=== PATIENT | female | born 1985 ===

== ENCOUNTER 2024-07-11 09:51 | Emergency (ER) | payer MEDICAID, SELFPAY ==
--- NOTE | ~2024-07-11 | US_ITS ---
CLINICAL HISTORY: Early US female pelvis LMP:Unknown, positive test, beta HCG level 6920. Technique: Ultrasound examination of the pelvis was performed with transabdominal and transvaginal technique for better visualization of the ovaries. Comparison: None Findings: No intrauterine gestation. Retroverted uterus measuring 7.8 x 4.9 x 5.1 cm without masses. Normal endometrial thickness of 0.6cm. The right ovary is normal in size, measuring 3.1 x 1.5 x 2.2cm, volume of 5.4mL. There is normal echogenicity and vascularity. There is a lesion measuring 1.8 x 1.5 x 1.4 cm which is centrally anechoic with hypoechoic rim and peripheral vascularity. It is not definitively demonstrated to be separate from the right ovary. Right paraovarian simple cyst measuring 0.8 x 0.5 x 0.8 cm. The left ovary is normal in size, measuring 4.7 x 2.3 x 3.0cm, volume of 17.0mL. There is normal echogenicity and vascularity. There is a heterogeneous avascular lesion with peripheral hypervascularity measuring 2.7 x 1.8 x 1.8 cm. No free fluid. Impression: Right tubal ectopic is favored. The 1.8 cm lesion is not definitively demonstrated to be separate from the right ovary and an ovarian ectopic may also be considered, however is rare. No rupture. 2.7 cm complex cyst in the left ovary is favored to be a corpus luteum. 8-12 week follow up pelvic ultrasound is recommended. This document has been electronically signed by: Dina Tolentino MD on 07/11/2024 21:16:49
[2024-07-11 12:20] VITALS: BP 130/66; PULSE 79; RESP 16; TEMP 36.4; O2SAT 100; BMI 22.3
--- NOTE | 2024-07-11 12:23 | ED_ITS ---
HPI - General Adult General Chief complaint: General Medical Stated complaint: Lower back pain Time Seen by Provider: 07/11/24 19:19 History of Present Illness ED Provider: Dr. Brunson HPI narrative: 39 y/o F patient; PMH (gave approx 10 months ago); presents from home reporting 12 days of bright red vaginal bleeding, suprapubic abdominal pain, and rectal pressure. The patient states she has been taking her control twice a day as prescribed. She otherwise denies: nausea/vomiting, fever or chills, SOB, cough/congestion, chest pain, syncope. Related Data Allergies Allergy/AdvReac Type Severity Reaction Status Date / Time No Known Allergies Allergy Verified 07/11/24 12:25 Review of Systems 2 Review of Systems: Yes all other systems are reviewed and are negative [facility] Past Medical History Attestation statement: The following information was validated with the patient. Source: unable to obtain Social History Social History Advance Directives: No Advance Directives Information Provided: No Physical Exam ED Vital Signs: Vital Signs - 24 hr 07/11/24 12:20 07/11/24 18:43 Temperature 97.5 F 98.2 F Pulse Rate 79 74 Respiratory Rate 16 16 Blood Pressure 130/66 129/65 Pulse Oximetry 100 100 Oxygen Delivery Method Room Air Room Air BMI result Body Mass Index 22.3 Patient is afebrile and hemodynamically stable Const General: cooperative and no acute distress HENMT Head: Yes normal to inspection and Yes atraumatic Eyes General: appearance normal, both eyes and all related structures Pupils: Equal, round and reactive pupils present EOM: EOMs intact bilaterally Neck Neck: Yes normal visual inspection, Yes full ROM, Yes supple and No tender Chest Chest palpation & inspection: normal inspection of the chest and normal palpation of entire chest wall Resp Effort & Inspection: normal respiratory effort, able to speak in complete sentences and no cough Auscultation: clear to auscultation bilaterally Cardio Rate: regular rate Rhythm: regular rhythm Peripheral pulses: Peripheral pulses 2+ throughout GI Inspection: Yes normal to inspection, No Abdominal wall edema and No distended Palpation (GI): Soft to palpation, not firm, nontender, no guarding and not rigid Auscultation: normal bowel sounds Back/Spine/Pelvis Back: No back tenderness Neuro Cranial nerves: Yes Equal, round and reactive pupils present Course Course Course Narrative: This is a Rapid Medical Examination (RME) performed by Kev Garcia PA-C in triage. Full HPI, ROS, assessment and treatment plan per primary provider in the Main ED. 39 yo female presents w multiple concerns. endorses rectal pain since yesterday which began after having a BM. denies constipation. no rectal bleeding or blood in stool. also reports vaginal bleeding x10 days, this is the second time she's' gotten her period in 1 month. on OCP. unsure if . also endorses headache. denies dizziness, vision changes. Plan: labs, UA, u preg Reevaluation(s) Reevaluation #1: Patient is afebrile and hemodynamically stable. Reviewed triage work up. Beta hcg positive, quant 6900. UA is notable for 3+ large blood. Ordered for US Pelvis. Plan: Transition care to oncoming provider pending US result Condition: Stable Medical Decision Making Lab Data 07/11/24 12:46 07/11/24 12:46 Labs: Lab Results 07/11/24 07/11/24 Range/Units 12:46 18:52 WBC 6.2 (4.8-10.8) X10*3/uL RBC 4.17 L (4.20-5.50) X10*6/uL Hgb 12.6 (12.0-16.0) g/dl Hct 37.4 (37.0-47.0) % MCV 89.7 (80.0-98.0) fL MCH 30.2 (27.0-33.0) pg MCHC 33.7 (31.0-35.0) g/dl RDW 12.4 (11.0-16.0) % Plt Count 303 (160-400) X10*3/uL MPV 9.9 (9.4-12.3) fL Immature Gran % (Auto) 0.3 (0.0-0.4) % Neut % (Auto) 75.1 H (45-73) % Lymph % (Auto) 15.2 L (20-40) % Thomas % (Auto) 8.9 (2-11) % Eos % (Auto) 0.2 (0-4) % Baso % (Auto) 0.3 (0-2) % Lymph # (Auto) 0.9 L (1.2-4.9) X10*3/uL Thomas # (Auto) 0.6 (0.1-1.2) X10*3/uL Eos # (Auto) 0.0 (0.0-0.4) X10*3/uL Baso # (Auto) 0.0 (0.0-0.2) X10*3/uL Abs Immat Gran (auto) 0.02 (0.00-0.03) X10*3/uL Absolute Neuts (auto) 4.7 (2.0-8.3) x10*3/uL Absolute Nucleated RBC 0.000 (0.0-0.012) X10*3/uL Nucleated RBC % (auto) 0.0 (0.0-0.2) /100WBC Sodium 141 (135-145) mmol/L Potassium 3.9 (3.3-5.1) mmol/L Chloride 109 H (96-108) mmol/L Carbon Dioxide 21 L (22-29) mmol/L Anion Gap 15 (12-20) BUN 10 (9-16) mg/dL Creatinine 0.77 (0.5-1.4) mg/dL Estim Creat Clear Calc 96.3 Estimated GFR > 60 Random Glucose 86 (60-115) mg/dL Calcium 9.2 (8.4-10.2) mg/dL Magnesium 2.2 (1.6-2.6) mg/dL Total Bilirubin 0.3 (0.0-1.0) mg/dL AST 20 (5-31) U/L ALT 11 (0-31) U/L Alkaline Phosphatase 88 (39-117) U/L Total Protein 8.1 H (6.5-8.0) g/dL Albumin 4.6 (3.5-5.0) g/dL Beta HCG, Quant 6920 mIU/mL Urine Color Yellow Urine Appearance Cloudy Urine pH 5.5 (5.0-9.0) Ur Specific [place] 1.020 (1.005-1.025) Urine Protein Trace (Neg-Trace) mg/dL Urine Glucose (UA) Negative (Negative) mg/dL Urine Ketones 80 (Negative) mg/dL Urine Blood Large (3+) H (Negative) Urine Nitrite Negative (Negative) Ur Leukocyte Esterase Negative (Negative) Urine RBC >20 H (0-2) /HPF Urine WBC 0-5 (0-5) /HPF Ur Squamous Epith Cells 6-10 (0-2) /HPF Urine Bacteria Trace (None Seen) Hyaline Casts 0-2 (0-2) /LPF Urine Test POSITIVE H (NEGATIVE) Influenza Type A (PCR) NEGATIVE (Negative) Influenza Type B (PCR) NEGATIVE (Negative) RSV RNA Qual (PCR) NEGATIVE (Negative) SARS-CoV-2 RNA (RT-PCR) NEGATIVE (Negative) Discharge Plan Discharge Clinical Impression: Patient Disposition: Still a Patient Print Language: [place] Creole
[2024-07-11 12:55] LABS: MANUAL DIFF FLAG NO
[2024-07-11 13:03] LABS: Basophils Percent Auto 0.3 % (0-2); Eosinophils Percent Auto 0.2 % (0-4); Hematocrit 37.4 % (37.0-47.0); Hemoglobin 12.6 g/dl (12.0-16.0); Imm Gran Abs Auto 0.02 X10*3/uL (0.00-0.03); Imm Gran Pct Auto 0.3 % (0.0-0.4); Lymphocytes Absolute Auto 0.9 X10*3/uL (1.2-4.9); Lymphocytes Percent Auto 15.2 % (20-40); Mean Corpuscular HGB Conc 33.7 g/dl (31.0-35.0); Mean Corpuscular Hemoglobin 30.2 pg (27.0-33.0); Mean Corpuscular Volume 89.7 fL (80.0-98.0); Mean Platelet Volume 9.9 fL (9.4-12.3); Monocytes Absolute Auto 0.6 X10*3/uL (0.1-1.2); Monocytes Percent Auto 8.9 % (2-11); Neutrophils Absolute Auto 4.7 x10*3/uL (2.0-8.3); Neutrophils Percent Auto 75.1 % (45-73); Platelet Count 303 X10*3/uL (160-400); Red Blood Count 4.17 X10*6/uL (4.20-5.50); Red Cell Distribution Width 12.4 % (11.0-16.0); White Blood Count 6.2 X10*3/uL (4.8-10.8)
[2024-07-11 13:19] LABS: Alanine Aminotransferase 11 U/L (0-31); Albumin Level 4.6 g/dL (3.5-5.0); Alkaline Phosphatase 88 U/L (39-117); Anion Gap 15 (12-20); Aspartate Amino Transferase 20 U/L (5-31); Bilirubin Total 0.3 mg/dL (0.0-1.0); Blood Urea Nitrogen 10 mg/dL (9-16); Calcium 9.2 mg/dL (8.4-10.2); Carbon Dioxide 21 mmol/L (22-29); Chloride 109 mmol/L (96-108); Creatinine Clr Calc Pharmacy 96.3; Estimated Glomerular Filt Rate > 60; Glucose Random 86 mg/dL (60-115); Magnesium 2.2 mg/dL (1.6-2.6); Potassium 3.9 mmol/L (3.3-5.1); Sodium 141 mmol/L (135-145); Total Protein 8.1 g/dL (6.5-8.0)
[2024-07-11 13:20] LABS: HCG Quantitative 6920 mIU/mL
[2024-07-11 13:37] LABS: Influenza A PCR NEGATIVE (Negative); Influenza B PCR NEGATIVE (Negative); Resp Syncy Virus RNA Qual PCR NEGATIVE (Negative); SARS COV2 PCR INHOUSE NEGATIVE (Negative)
[2024-07-11 18:43] VITALS: BP 129/65; PULSE 74; RESP 16; TEMP 36.8; O2SAT 100
[2024-07-11 19:02] LABS: Appearance Urine Cloudy; Color Urine Yellow; Glucose Urine UA Negative (Negative); Leukocyte Esterase Urine Negative (Negative); Nitrite Urine Negative (Negative); PH 5.5 (5.0-9.0); UMIC TRIGGER UACC YES; Urine Blood Large (3+) (Negative); Urine Ketones 80 mg/dL (Negative); Urine Protein Trace mg/dL (Neg-Trace)
[2024-07-11 19:04] LABS: UPreg QC Valid YES; Urine Pregnancy POSITIVE (NEGATIVE)
[2024-07-11 19:14] LABS: Bacteria Urine Trace (None Seen); Hyaline Casts Urine 0-2 /LPF (0-2); RBC Urine >20 /HPF (0-2); WBC Urine 0-5 /HPF (0-5)
--- OUTSIDE RECORDS SUMMARY | 2024-07-11 20:07 | XMS_ITS | Clinical Summary ---
Author Organization [facility] Address [address] [place] [address] Care Team Providers Care Wood Gang Sawyer Name Role Phone Unavailable Primary Care Provider Unavailabl e Source Comments PLEASE NOTE, if this patient is a minor, it may be UNLAWFUL to discuss sensitive information that is contained in these records (such as FAMILY PLANNING, MENTAL HEALTH or SUBSTANCE ABUSE) with the minor patient's parent or other person without the patient's specific authorization.[facility] Social History Tobacco Use Types Packs/Day Years Used Date Smoking Tobacco: Never Assessed Comments Unknown Sex and Gender Information Value Date Recorded Sex Assigned at Not on file Legal Sex Female 1:07 PM PST Gender Identity Not on file Sexual Orientation Not on file Plan of Treatment Upcoming Encounters Date Type Department Care Team (Late st Contact Info) Description 08/09/2024 10:00 AM EST Office Visit [facility] [address] [place] [phone] Lalo Mehta, [facility] [address] [place] [address] Health Maintenance Due Date Last Done Comments Diabetes Screening 1986 HPV Screening 1986 Hepatitis C Screening 1986 Pap + HPV 1986 Tobacco Screening 1986 HIV Screening 2001 Relationship Safety Screening/Counseling 2001 Hypertension Screening (#1) 2004 Imm-DTaP/Tdap/Td (1 - Tdap) 2005 Imm-Hepatitis B (1 of 3 - 19+ 3-dose series) 5 Cervical Cancer Screening 2007 Pap Smear 2007 Kyg-[id number]-10 ( - 2023- season) 2024 Imm-Influenza (#1) 2024 Alcohol and Drug Screen 06/07/2024 Depression Annual Screen 06/07/2024 Cervical Ablation/Cold-Knife Conization Discontinued Cervical Cryotherapy Discontinued Colposcopy Discontinued Endometrial Biopsy Discontinued Excision/Leep Discontinued HPV Genotyping Discontinued Vaginal Pap Discontinued Vulvoscopy Discontinued Insurance [place]
--- NOTE | 2024-07-11 21:59 | PC.NURSE ---
pt tolerated pevic exam. swabs obtained, iv in place. no s/s of distress.
--- NOTE | 2024-07-11 22:12 | P.CONOB_ITS ---
FIELD MARKETING COORDINATOR - CN: HPI Data of Consult Consult date: 07/11/24 Primary Care Provider: None Physician Consult Narrative Narrative: I was consulted on Syd Jerome who is a 39 year old 10 months ; presenting the emergency room with 12 days history of vaginal bleeding, suprapubic abdominal pain, and rectal pressure. No nausea/vomiting, or any other complaints HCG 6980 AST/ALT, creatinine within normal Blood type pending Pelvic ultrasound showed the following: No intrauterine gestation. Retroverted uterus measuring 7.8 x 4.9 x 5.1 cm without masses. Normal endometrial thickness of 0.6cm. The right ovary is normal in size, measuring 3.1 x 1.5 x 2.2cm, volume of 5.4mL. There is normal echogenicity and vascularity. There is a lesion measuring 1.8 x 1.5 x 1.4 cm which is centrally anechoic with hypoechoic rim and peripheral vascularity. It is not definitively demonstrated to be separate from the right ovary. Right paraovarian simple cyst measuring 0.8 x 0.5 x 0.8 cm. The left ovary is normal in size, measuring 4.7 x 2.3 x 3.0cm, volume of 17.0mL. There is normal echogenicity and vascularity. There is a heterogeneous avascular lesion with peripheral hypervascularity measuring 2.7 x 1.8 x 1.8 cm. No free fluid. cc:: CC: OB [facility] Social History Social History Alcohol intake: never Smoked in Last 30 Days: No Use of substances other than those prescribed or required for medical reasons: No Advance Directives: No Advance Directives Information Provided: No Patient : Yes Meds Allergies Allergy/AdvReac Type Severity Reaction Status Date / Time No Known Allergies Allergy Verified 07/11/24 12:25 FIELD MARKETING COORDINATOR Physical Exam Vitals Vital signs: Temp Pulse Resp BP Pulse Ox O2 Del Method 98.2 F 74 16 129/65 100 Room Air 07/11/24 18:43 07/11/24 18:43 07/11/24 18:43 07/11/24 18:43 07/11/24 18:43 07/11/24 18:43 BMI result Body Mass Index 22.3 Additional Comments: Reported by Dr. Morfin as the following: Soft to palpation, not firm, nontender, no guarding and not rigid FIELD MARKETING COORDINATOR - Results Labs 07/11/24 12:46 07/11/24 12:46 Labs: Short CBC 07/11/24 Range/Units 12:46 WBC 6.2 (4.8-10.8) X10*3/uL Hgb 12.6 (12.0-16.0) g/dl Hct 37.4 (37.0-47.0) % Plt Count 303 (160-400) X10*3/uL BMP 07/11/24 12:46 Sodium 141 Potassium 3.9 Chloride 109 H Carbon Dioxide 21 L BUN 10 Creatinine 0.77 Calcium 9.2 Liver Function 07/11/24 Range/Units 12:46 Total Bilirubin 0.3 (0.0-1.0) mg/dL AST 20 (5-31) U/L ALT 11 (0-31) U/L Alkaline Phosphatase 88 (39-117) U/L Albumin 4.6 (3.5-5.0) g/dL Urine 07/11/24 Range/Units 18:52 Urine Color Yellow Urine Appearance Cloudy Urine pH 5.5 (5.0-9.0) Ur Specific [place] 1.020 (1.005-1.025) Urine Protein Trace (Neg-Trace) mg/dL Urine Glucose (UA) Negative (Negative) mg/dL Urine Test POSITIVE H (NEGATIVE) Assessment and Plan (1) Ectopic : Status: Acute Recommended Dr. Morfin the following: Since the findings on ultrasound is highly suspicious for ectopic with no evidence of intrauterine , with an hCG level at 6980 above the discriminatory level of 3500 increasing the suspicion of ectopic . Recommended methotrexate as the next step of management. Since there is no consistent available nursing staff at [facility] with the required credentials for administering methotrexate, recommended transfer to [facility] for further management. Check Rh status. I spent a total of 20 minutes reviewing the chart, communicating to the emergency room provider and documenting in the medical record.
[2024-07-11 23:11] VITALS: BP 109/65; PULSE 72; RESP 16; TEMP 37; O2SAT 100
[2024-07-12 00:26] VITALS: BP 103/59; PULSE 87; RESP 16; TEMP 37.1; O2SAT 100
[2024-07-12 00:45] VITALS: BP 103/59; PULSE 87; RESP 16; TEMP 37.1; O2SAT 100
[2024-07-12 01:46] LABS: CT PCR NOT DETECTED (Not Detect.); NG PCR NOT DETECTED (Not Detect.)
[2024-07-12 08:30] LABS: Bacterial Vaginosis PCR POSITIVE (Negative); Candida Group PCR NOT DETECTED (Not Detect); Candida glab krusei PCR NOT DETECTED (Not Detect); Trichomonas vaginalis PCR NOT DETECTED (Not Detect)
== END 2024-07-12 00:57 | disposition short-term general hospital (02) ==
PROVIDERS: Physician Assistant Medical; Emergency Provider Emergency Medicine
DX: O00.90 Unspecified ectopic pregnancy without intrauterine pregnancy (principal); R10.2 Pelvic and perineal pain; Z79.899 Other long term (current) drug therapy; Z03.818 Encounter for observation for suspected exposure to other biological agents ruled out
CPT/HCPCS: 0241U; 36415; 76801; 76817; 80053; 81001; 81003; 81025; 81515; 83735; 84702; 85025; 86900; 86901; 87491; 87591; 99285

== ENCOUNTER → 2024-07-11 19:42 | Outpatient (BNV) | payer MEDICAID, SELFPAY | PROVIDERS: Emergency Provider Emergency Medicine; Visit Provider Obstetrics & Gynecology | DX: O00.90 Unspecified ectopic pregnancy without intrauterine pregnancy (principal) | CPT/HCPCS: 99283 ==